=== PATIENT | female | born 1965 | race Caucasian/White ===

== ENCOUNTER → 2016-12-21 | Outpatient (CLI) | payer OTHER ==
[2016-12-21 09:29] LABS: ALT 35 U/L (9-52); AST 23 U/L (14-36); Alkaline Phosphatase 98 U/L (38-126); Anion Gap 10 mmol/L; Blood Urea Nitrogen 16 mg/dL (7-17); Calcium 8.8 mg/dL (8.4-10.2); Carbon Dioxide 25 mmol/L (22-30); Chloride 108 mmol/L (98-107); Cholesterol 190 mg/dL (<200); Glucose 100 mg/dL (74-99); HDL Cholesterol 47 mg/dL (40-60); Non-African American GFR(MDRD) >60 (>60 ml/min/1.73 sqM); Potassium 3.8 mmol/L (3.5-5.1); Sodium 143 mmol/L (137-145); Total Bilirubin 0.6 mg/dL (0.2-1.3); Total Protein 7.5 g/dL (6.3-8.2)
== END | disposition home or self-care (01) ==
LOC: LABWHC1 08:45
PROVIDERS: ATTEND Family Medicine
DX: E03.9 Hypothyroidism, unspecified (principal); E16.2 Hypoglycemia, unspecified; R03.0 Elevated blood-pressure reading, without diagnosis of hypertension
CPT/HCPCS: 36415; 80053; 80061; 83525; 84443; 84681

== ENCOUNTER → 2017-09-04 | Outpatient (CLI) | payer OTHER ==
--- NOTE | 2017-09-04 10:23 | US ---
EXAMINATION TYPE: US liver DATE OF EXAM: 09/04/2017 COMPARISON: NONE CLINICAL HISTORY: R74.8 ABN LIVER ENZYMES. EXAM MEASUREMENTS: Liver Length: 15.3 cm Gallbladder Wall: 0.2 cm CBD: 0.6 cm Right Kidney: 9.4 x 4.6 x 5.8 cm Pancreas: Obscured by bowel gas Liver: wnl Gallbladder: multiple stones Evidence for sonographic Alexis's sign: no CBD: wnl Right Kidney: No hydronephrosis or masses seen IMPRESSION: 1. Uncomplicated cholelithiasis.
== END | disposition home or self-care (01) ==
LOC: RADUSWWP 09:24
PROVIDERS: ATTEND Family Medicine
DX: K80.20 Calculus of gallbladder without cholecystitis without obstruction (principal); R74.8 Abnormal levels of other serum enzymes
CPT/HCPCS: 76705

== ENCOUNTER → 2019-01-21 | Outpatient (CLI) | payer OTHER ==
[2019-01-21 17:28] LABS: HCT 42.9 % (34.0-46.0); HGB 14.1 gm/dL (11.4-16.0); MCH 30.2 pg (25.0-35.0); MCHC 32.8 g/dL (31.0-37.0); Mean Platelet Volume 7.9; Platelet Count 224 k/uL (150-450); RBC 4.66 m/uL (3.80-5.40); RDW 12.4 % (11.5-15.5)
[2019-01-22 01:16] LABS: Insulin Level 15.6 mIU/mL (3.0-25.0)
[2019-01-22 03:18] LABS: Albumin 4.3 g/dL (3.80-4.90); Albumin/Globulin Ratio 1.72 (1.60-3.17); BUN/Creat Ratio 18.57 Ratio (12.00-20.00); Globulin 2.5 g/dL (1.6-3.3); Potassium 3.8 mmol/L (3.5-5.5); Total Bilirubin 0.4 mg/dL (0.2-1.2); Total Protein 6.8 g/dL (6.2-8.2)
== END | disposition home or self-care (01) ==
LOC: LABWHC1 16:47
PROVIDERS: ATTEND Family Medicine
DX: E03.9 Hypothyroidism, unspecified (principal); E16.1 Other hypoglycemia
CPT/HCPCS: 36415; 80053; 82943; 83036; 83525; 84443; 84681; 85027

== ENCOUNTER → 2019-01-21 | Outpatient (CLI) | payer OTHER ==
--- NOTE | 2019-01-22 07:26 | US ---
EXAMINATION TYPE: US transvaginal DATE OF EXAM: 01/21/2019 COMPARISON: NONE CLINICAL HISTORY: N95.0 PMB. Postmenopausal bleeding. Hx ovarian cyst. , D and C. . TECHNIQUE: Transvaginal (TV). EXAM MEASUREMENTS: Uterus: 7.1 x 5.3 x 4.4 cm Endometrial Stripe: 0.32 cm Right Ovary: not seen Left Ovary: 2.2 x 1.3 x 1.0 cm 1. Uterus: Anteverted. Appears heterogeneous. Anechoic area seen in cervix measurin.8 x 0.6 x 0. 5 cm. Hyperechoic area seen, appears to be left of endometrium measurin.3 x 0.4 x 0.4 cm. 2. Endometrium: appears indistinct 3. Right Ovary: not seen 4. Left Ovary: appears wnl 5. Bilateral Adnexa: appear wnl 6. Posterior cul-de-sac: appears wnl Small nabothian cysts in the cervix seen on initial images. Heterogeneous uterus. Endometrium not wel l visualized and may be atrophic. It is better seen towards the end of study and appears within marbella l limits. No free fluid in pelvic cul-de-sac. Left ovary unremarkable for postmenopausal female. Righ t ovary not seen. IMPRESSION: No suspicious endometrial thickening.
== END ==
LOC: RADUSWWP 16:44
PROVIDERS: ATTEND Obstetrics & Gynecology
DX: N95.0 Postmenopausal bleeding (principal)
CPT/HCPCS: 76830

== ENCOUNTER → 2020-04-25 | Outpatient (CLI) | payer OTHER ==
[2020-04-26 03:48] LABS: T4, Free (Free Thyroxine) 1.3 ng/dL (0.80-1.80)
== END | disposition home or self-care (01) ==
LOC: LABWHC1 16:05
PROVIDERS: ATTEND Internal Medicine Interventional Cardiology
DX: E03.9 Hypothyroidism, unspecified (principal)
CPT/HCPCS: 36415; 84439; 84443

== ENCOUNTER → 2020-08-02 | Outpatient (CLI) | payer OTHER ==
--- NOTE | 2020-08-03 03:32 | MR ---
EXAMINATION TYPE: MR iac wo/w con DATE OF EXAM: 08/02/2020 COMPARISON: None HISTORY: Vertigo CONTRAST: Standard multiplanar, multisequence MRI departmental protocol utilizing 6.5 mL intravenous Gadavist g adolinium contrast. Ventricles have normal size. There is no mass effect nor midline shift. There is no sign of intracran ial hemorrhage. Diffusion images show no evidence of an acute infarct. The brainstem is intact. Corpu s callosum is intact. There is no evidence of orbital mass. Sella turcica appears normal. Cerebellum appears normal. The acoustic nerve and vestibular nerves appear normal. There is no eviden ce of cerebellopontine angle mass. Internal auditory canals appear normal. Contrast images show no pa thologic enhancement. There is normal enhancement of the venous sinuses. IMPRESSION: Normal MR scan of the brain. Normal internal auditory canals. No posterior fossa abnormality.
== END | disposition home or self-care (01) ==
LOC: RADMRIMAIN 14:39
PROVIDERS: ATTEND Otolaryngology
DX: R42 Dizziness and giddiness (principal); Z88.5 Allergy status to narcotic agent
CPT/HCPCS: 70553; A9585